=== PATIENT | male | born 1995 | race Caucasian/White ===

== ENCOUNTER 2020-10-06 20:46 | Emergency (ER) | payer MEDICAID ==
[~2020-10-06] VITALS: Ht 167.6 cm; Wt 79.0 kg
[2020-10-06 23:30] VITALS: BP 129/78
== END 2020-10-06 23:35 | disposition home or self-care (01) ==
LOC: ER 20:46
DX: A35 Other tetanus (principal); T43.4X5A Adverse effect of butyrophenone and thiothixene neuroleptics, initial encounter; F15.10 Other stimulant abuse, uncomplicated; F20.9 Schizophrenia, unspecified; F31.9 Bipolar disorder, unspecified; F12.10 Cannabis abuse, uncomplicated; Y92.018 Other place in single-family (private) house as the place of occurrence of the external cause
CPT/HCPCS: 99283

== ENCOUNTER 2020-10-21 13:37 | Emergency (ER) | payer MEDICAID ==
[~2020-10-21] VITALS: Ht 170.2 cm; Wt 61.0 kg
[2020-10-21] MEDS ORDERED: DIPHENHYDRAMINE 25MG CAPSULE PO ONE (15:00)
[2020-10-21] MEDS ORDERED: BENZTROPINE MESYLATE 1MG TABLET PO ONE (15:00)
[2020-10-21 17:32] LABS: *AMPHETAMINES SCREEN URINE NEGATIVE (NEGATIVE); *BARBITURATES SCREEN URINE NEGATIVE (NEGATIVE)
[2020-10-21 17:33] LABS: *BENZODIAZEPINES SCREEN URINE NEGATIVE (NEGATIVE); *COCAINE SCREEN URINE NEGATIVE (NEGATIVE); METHADONE URINE SCREEN NEGATIVE (NEGATIVE); OPIATES URINE SCREEN NEGATIVE (NEGATIVE); PHENCYCLIDINE URINE SCREEN NEGATIVE (NEGATIVE)
[2020-10-21 17:34] LABS: CANNABINOID URINE SCREEN NEGATIVE (NEGATIVE)
[2020-10-21 18:28] VITALS: BP 125/82
== END 2020-10-21 18:29 | disposition home or self-care (01) ==
LOC: ER 13:46
DX: K11.7 Disturbances of salivary secretion (principal); F15.10 Other stimulant abuse, uncomplicated; F14.10 Cocaine abuse, uncomplicated; Z86.59 Personal history of other mental and behavioral disorders
CPT/HCPCS: 80305; 99283